=== PATIENT | female | born 1995 | race Caucasian/White ===

== ENCOUNTER 2017-07-07 15:40 | Emergency (ER) | payer BC ==
[2017-07-07] MEDS ORDERED: Morphine 4 MG/ML VIAL ONE (16:04)
[2017-07-07] MEDS ORDERED: Ketorolac Tromethamine 30 MG/ML VIAL ONE (16:05)
[2017-07-07 16:34] LABS: Bilirubin Negative (Negative); Blood, Urine Moderate (Negative); Glucose, Urine (Dipstick) Negative (Negative); Ketone, Urine Negative (Negative); Nitrite Negative (Negative); Protein, Urine (Dipstick) 30 mg/dL (Neg-Trace); Urobilinogen 0.2 mg/dL (0.2-1.0)
[2017-07-07 16:39] LABS: Bacteria/HPF Rare-Few HPF (None Seen); Hyaline Casts/LPF 0-3 HYALINE CAST LPF (0-3 Hyaline); RBC/HPF GREATER THAN 50-TNTC HPF (0-3); Squamous Epithelial 0-3 HPF (0-3)
--- NOTE | 2017-07-07 17:09 | ULT ---
PELVIC ULTRASOUND WITH RUSH SCALE AND DOPPLER COLOR FLOW IMAGING Transabdominal and transvaginal pelvic ultrasound performed. 09/06/16 CLINICAL HISTORY: Right side pelvic pain. FINDINGS: The endometrium is normal in size for patient's age. Fluid in the endometrial canal may be physiologi c. The ovaries are obscured from view by bowel content and persistent shadowing. No significant free pelvic fluid. IMPRESSION: Potential physiologic changes of the endometrium, given patient's age. Correlate clinically. Nonvisualization of ovaries for comment. As necessary, imaging followup may be obtained. POS: [facility]
[2017-07-07 17:29] LABS: #Lymphocytes 1.8 thou/uL (1.20-3.40); #Monocytes 0.8 thou/uL (0.11-0.59); #Neutrophils 9.9 thou/uL (1.40-6.50); %Basophils 0.3 % (0.0-1.0); %Eosinophils 0.3 % (0.0-10.0); %Lymphocytes 14.4 % (21.0-51.0); %Monocytes 6.1 % (0.0-10.0); Hematocrit 44.5 % (36.0-47.0); Mean Platelet Volume 6.4 fL (7.4-10.4); Red Blood Cell (RBC) Count 4.89 mill/uL (4.20-5.40); White Blood Cell (WBC) Count 12.6 thou/uL (4.8-10.8)
--- NOTE | 2017-07-07 17:39 | CT ---
CT ABDOMEN AND PELVIS NONCONTRAST 07/07/17 HISTORY: Right flank pain. FINDINGS: Each renal collecting system, ureter, and the urinary bladder are incompletely distended without ston e apparent. Lack of contrast limits evaluation for other abnormalities. No adnexal masses are apparent. The appen sylvain is not inflamed. IMPRESSION: No CT evidence of urinary tract obstruction or calcification. POS: [facility]
[2017-07-07 17:52] LABS: ALT (SGPT) 17 U/L (8-55); AST (SGOT) 24 U/L (5-34); Alkaline Phosphatase 51 U/L (40-150); Anion Gap 17 mmol/L (10-20); BUN (Urea Nitrogen) 6 mg/dL (7.0-18.7); Bilirubin, Total 0.4 mg/dL (0.2-1.2); Calc. Creatinine Clearance 0 mL/min (70-130); Calcium 9.7 mg/dL (7.8-10.44); Carbon Dioxide 20 mmol/L (22-29); Chloride 104 mmol/L (98-107); Estimated GFR-MDRD Greater than 90; Protein, Total 8.3 g/dL (6.0-8.3)
== END 2017-07-07 18:38 | disposition home or self-care (01) ==
LOC: ERS 15:40
DX: R10.31 Right lower quadrant pain (principal); E03.9 Hypothyroidism, unspecified; G43.909 Migraine, unspecified, not intractable, without status migrainosus; Z79.899 Other long term (current) drug therapy
CPT/HCPCS: 36415; 74176; 76856; 80053; 81003; 81015; 81025; 85025; 96374; 96375; J1885; J2270